=== PATIENT | male | born 1955 | race Caucasian/White ===

== ENCOUNTER 2022-02-19 09:28 | Inpatient (IN) ==
[2022-02-19] MEDS ORDERED: GLUCAGON 1 MG VIAL IM PRN (09:48)
[2022-02-19] MEDS ORDERED: DEXTROSE 10% 250 ML BAG IV PRN (12:18)
[2022-02-19] MEDS ORDERED: CLORAZEPATE 3.75 MG TABLET PO PRN (12:57)
[2022-02-19] MEDS ORDERED: NITROGLYCERIN SL 0.4 MG TABLET SL PRN (12:58)
[2022-02-19] MEDS ORDERED: MORPHINE 2 MG/1 ML SYRINGE IV PRN (12:58)
[2022-02-19 13:47] LABS: Basophils # 0.1 10*3/uL (0.0-0.2); Basophils % 0.9 % (0.0-0.8); Eosinophils # 0.2 10*3/uL (0.0-0.87); Eosinophils % 3.5 % (0.00-10.9); Hematocrit 46.5 VOL% (42.0-52.0); Hemoglobin 14.8 GM/DL (14.0-18.0); Immature Granulocytes % 0.3 %; Immature Granulocytes Absolute 0.02 #; Lymphocytes # 1.6 10*3/uL (1.4-4.0); Lymphocytes % 23.8 % (21.2-54.2); Mean Corpuscular HGB Conc 31.8 GM/DL (32-36); Mean Corpuscular Volume 89.8 FL (87-102); Mean Platelet Volume 9.7 FL (9.6-12.0); Monocytes # 0.6 10*3/uL (0.11-0.8); Monocytes % 8.9 % (1.7-12.7); Neutrophils % 62.6 % (38.7-73.9); Platelet Count 241 T/CUMM (130-400); Red Blood Count 5.18 MC/CUMM (3.8-5.5); Red Cell Distribution Width 14.4 % (9.3-17.3); White Blood Count 6.9 T/CUMM (4-12)
[2022-02-19 14:09] LABS: Albumin 3.5 G/DL (3.4-5.0); Bilirubin,Total 0.4 MG/DL (0.20-1.00); Calcium 8.9 MG/DL (8.5-10.1); Potassium 3.9 MMOL/L (3.5-5.1); Total Protein 7.2 G/DL (6.4-8.2)
[2022-02-19 16:05] LABS: Arterial Base Excess iSTAT -1 MMOL/L (-2.5-2.5); Arterial Bicarbonate iSTAT 23.1 MMOL/L (20-26); Arterial O2 Saturation iSTAT 97 % (95-100); Arterial PCO2 iSTAT 36 MM HG (35-48); Arterial PO2 iSTAT 90 MM HG (80-95); Arterial Total CO2 iSTAT 24 MMO/L (23-27); Arterial pH iSTAT 7.412 (7.35-7.45)
[2022-02-19] MEDS: CHLORHEXIDINE 4% SOLN 118 ML BOTTLE TOP SCH ×2 (16:30→20:29)
[2022-02-19] MEDS: ALPRAZolam 0.5 MG TABLET PO SCH (20:15)
[2022-02-19] MEDS: CHLORHEXIDINE 0.12% ORAL RINSE 60 ML BOTTLE SWISH/SPIT SCH (20:15)
[2022-02-19] MEDS ORDERED: METOPROLOL TARTRATE 50 MG TABLET PO ONE (20:24)
[2022-02-19] MEDS: NORTRIPTYLINE 25 MG CAPSULE PO SCH (20:54)
[2022-02-19] MEDS ORDERED: CALCIUM CARBONATE CHEW 500 MG TABLET PO ONE (22:36)
[2022-02-20] MEDS: CHLORHEXIDINE 4% SOLN 118 ML BOTTLE TOP SCH (04:03)
[2022-02-20] MEDS ORDERED: VANCOMYCIN 500 MG VIAL ONE (04:21)
[2022-02-20] MEDS ORDERED: PAPAVERINE 60 MG/2 ML VIAL ONE (04:21)
[2022-02-20] MEDS ORDERED: VANCOMYCIN 1,000 MG VIAL ONE (04:21)
[2022-02-20] MEDS ORDERED: CEFUROXIME INJ 1,500 MG in SODIUM CHLORIDE 0.9% 100 ML IV ONE (05:00)
[2022-02-20] MEDS: SODIUM CHLORIDE 0.9% 1,000 ML IV SCH ×2 (05:16→20:48)
[2022-02-20] MEDS ORDERED: FAMOTIDINE 20 MG TABLET PO ONE (05:30)
[2022-02-20] MEDS ORDERED: DIAZEPAM 5 MG TABLET PO ONE (05:30)
[2022-02-20] MEDS ORDERED: AMINOCAPROIC ACID 5,000 MG/20 ML VIAL ONE (05:50)
[2022-02-20] MEDS ORDERED: ETOMIDATE 40 MG/20 ML VIAL IV ONE (05:50)
[2022-02-20] MEDS ORDERED: LIDOCAINE 2% 5 ML VIAL ONE ×2 (05:50→12:44)
[2022-02-20] MEDS ORDERED: VECURONIUM 10 MG VIAL IV ONE (05:50)
[2022-02-20] MEDS ORDERED: CALCIUM CHLORIDE 1,000 MG/10 ML VIAL IV ONE (05:50)
[2022-02-20] MEDS ORDERED: MIDAZOLAM 10 MG/2 ML VIAL ONE ×4 (05:51→08:12)
[2022-02-20] MEDS ORDERED: SUFentanil 250 MCG/5 ML AMP ONE (05:51)
[2022-02-20] MEDS ORDERED: ePHEDrine 50 MG/ML VIAL ONE (06:06)
[2022-02-20] MEDS ORDERED: MINERAL OIL/PETROLATUM OPH OINT 3.5 GM TUBE ONE (06:14)
[2022-02-20] MEDS ORDERED: SODIUM CHLORIDE 0.9% 250 ML IV ONE (06:15)
[2022-02-20] MEDS ORDERED: HEPARIN/NACL 0.9% 2 UNITS/ML 1,000 UNIT/500 ML BAG IV ONE (06:15)
[2022-02-20] MEDS ORDERED: SODIUM CHLORIDE 0.9% 1,000 ML IV ONE (06:15)
[2022-02-20] MEDS ORDERED: PHENYLEPHRINE DRIP 20 MG/250 ML PREMIX IV ONE (06:15)
[2022-02-20] MEDS ORDERED: LACTATED RINGERS 1,000 ML IV ONE (06:15)
[2022-02-20] MEDS ORDERED: SEVOFLURANE 1 UNIT/15 MINUTE INH ONE (06:15)
[2022-02-20 08:16] LABS: ABG Base Excess -2.8 MMOL/L (-2.5-2.5); ABG HCO3 22.1 MMOL/L (20-26); ABG PH 7.344 (7.35-7.45); ABG TCO2 19.9 MMOL/L (23-27); Glucose Heart Surgery 160 MG/DL (74-106); Hematocrit Heart Surgery 42.8 PERCENT (42-52); Hemoglobin Heart Surgery 13.9 G/DL (14.0-18.0); Ionized Calcium Arterial 1.16 MMOL/L (1.21-1.46); PH Patient Temp Arterial 7.344; Patient Temperature 37 CELCIUS; Potassium Heart/CVR 3.8 MMOL/L (3.5-5.1); Sodium Heart/CVR 135 MMOL/L (135-145)
[2022-02-20] MEDS ORDERED: SODIUM BICARBONATE 50 MEQ/50 ML VIAL IV ONE ×2 (08:21→12:46)
[2022-02-20] MEDS ORDERED: CALCIUM CHLORIDE 1,000 MG/10 ML SYRINGE IV ONE (08:22)
[2022-02-20] MEDS ORDERED: PHENYLEPHRINE DRIP 40 MG/250 ML PREMIX IV ONE (08:22)
[2022-02-20] MEDS ORDERED: POTASSIUM CHLORIDE RIDER 20 MEQ/100 ML PREMIX IV ONE (08:22)
[2022-02-20] MEDS ORDERED: NITROPRUSSIDE 50 MG/2 ML VIAL ONE (08:22)
[2022-02-20 08:57] LABS: Bilirubin,Urine Negative (Negative); Blood, Urine Negative (Negative); Glucose,Urine (UA) Negative (Negative); Ketones,Urine Negative (Negative); Mucus,Urine Occasional /LPF (Occasional); Nitrite,Urine Negative (Negative); Protein,Urine Negative (Negative); RBC,Urine <1 /HPF (0-4); Squamous Epithelial Cell,Urine Occasional /HPF (0-10); Urine Appearance Clear (Clear); Urine Color Yellow (Yellow); Urine Specific Gravity 1.025 (1.001-1.035); Urine Urobilinogen 0.2 eU/dL (<2.0)
[2022-02-20 10:24] LABS: Hematocrit Heart Surgery 27.7 PERCENT (42-52); Hemoglobin Heart Surgery 8.9 G/DL (14.0-18.0); PH Patient Temp Venous 7.348; PO2 Patient Temp Venous 53.2 MM HG; Potassium Heart/CVR 5.1 MMOL/L (3.5-5.1); VBG Base Excess -2.8 MEQ/L (0-4); VBG HCO3 21.9 MEQ/L (24-28); VBG Oxygen Saturation 90.5 %; VBG PCO2 45.2 MMHG (41-51); VBG PH 7.32; VBG PO2 60.8 MMHG (17-40); VBG Total CO2 21.7 MMOL/L
[2022-02-20 11:00] LABS: Hematocrit Heart Surgery 32.6 PERCENT (42-52); Hemoglobin Heart Surgery 10.5 G/DL (14.0-18.0); PCO2 Patient Temp Venous 36.8 MM HG; PH Patient Temp Venous 7.36; PO2 Patient Temp Venous 40.4 MM HG; Potassium Heart/CVR 5.3 MMOL/L (3.5-5.1); VBG Base Excess -4.1 MEQ/L (0-4); VBG HCO3 20.7 MEQ/L (24-28); VBG PCO2 42.6 MMHG (41-51); VBG PH 7.318; VBG PO2 49.7 MMHG (17-40)
[2022-02-20] MEDS ORDERED: ALBUTEROL INHALER 18 GM INH ONE (11:10)
[2022-02-20 11:34] LABS: ABG Base Excess -5.3 MMOL/L (-2.5-2.5); ABG Oxygen Saturation 99.4 % (95-100); ABG PCO2 36.6 MM HG (35-48); ABG PH 7.342 (7.35-7.45); Glucose Heart Surgery 350 MG/DL (74-106); Hematocrit Heart Surgery 32.8 PERCENT (42-52); Hemoglobin Heart Surgery 10.6 G/DL (14.0-18.0); Ionized Calcium Arterial 1.23 MMOL/L (1.21-1.46); PCO2 Patient Temp Arterial 36.6 MMHG; PH Patient Temp Arterial 7.342; Patient Temperature 37 CELCIUS; Potassium Heart/CVR 4.5 MMOL/L (3.5-5.1); Sodium Heart/CVR 128 MMOL/L (135-145)
[2022-02-20] MEDS ORDERED: MORPHINE 10 MG/1 ML VIAL IV PRN (12:01)
[2022-02-20] MEDS ORDERED: VECURONIUM 10 MG VIAL IV PRN ×2 (12:01)
[2022-02-20] MEDS ORDERED: MAGNESIUM SULF RIDER 4 GM/100 ML PREMIX IV PRN (12:01)
[2022-02-20] MEDS ORDERED: SODIUM CHLORIDE 0.45% 1,000 ML IV SCH ×2 (12:01)
[2022-02-20] MEDS ORDERED: PHENYLEPHRINE DRIP 40 MG/250 ML PREMIX IV PRN (12:01)
[2022-02-20] MEDS ORDERED: ONDANSETRON 4 MG/2 ML VIAL IV PRN (12:01)
[2022-02-20] MEDS ORDERED: NITROPRUSSIDE 100 MG in DEXTROSE 5% 250 ML IV PRN (12:01)
[2022-02-20] MEDS ORDERED: CHLORHEXIDINE 4% SOLN 118 ML BOTTLE TOP PRN (12:01)
[2022-02-20] MEDS ORDERED: ACETAMINOPHEN 650 MG SUPP RECTAL PRN (12:01)
[2022-02-20] MEDS ORDERED: INSULIN REGULAR 100 UNIT/ML IV ONE (12:01)
[2022-02-20] MEDS ORDERED: MAGNESIUM SULF RIDER 2 GM/50 ML PREMIX IV PRN (12:01)
[2022-02-20] MEDS ORDERED: POTASSIUM CHLORIDE RIDER 10 MEQ/100 ML PREMIX IV PRN (12:01)
[2022-02-20] MEDS ORDERED: MIDAZOLAM 2 MG/2 ML VIAL IV PRN (12:01)
[2022-02-20] MEDS ORDERED: MIDAZOLAM 10 MG/2 ML VIAL IV PRN (12:01)
[2022-02-20] MEDS ORDERED: CALCIUM CHLORIDE 1,000 MG/10 ML SYRINGE IV PRN (12:01)
[2022-02-20] MEDS ORDERED: DEXTROSE 10% 250 ML BAG IV PRN ×2 (12:01)
[2022-02-20] MEDS: LACTATED RINGERS 1,000 ML IV PRN ×3 (12:10→13:52)
[2022-02-20 12:41] LABS: ABG Base Excess -3.5 MMOL/L (-2.5-2.5); ABG HCO3 21.6 MMOL/L (20-26); ABG Oxygen Saturation 99.4 % (95-100); ABG PCO2 42.9 MM HG (35-48); ABG PH 7.328 (7.35-7.45); Glucose Heart Surgery 339 MG/DL (74-106); Hematocrit Heart Surgery 37.3 PERCENT (42-52); Hemoglobin Heart Surgery 12.1 G/DL (14.0-18.0); Potassium Heart/CVR 3.4 MMOL/L (3.5-5.1)
[2022-02-20 12:43] LABS: Basophils % 0.3 % (0.0-0.8); Eosinophils # 0.1 10*3/uL (0.0-0.87); Eosinophils % 0.7 % (0.00-10.9); Hemoglobin 11.9 GM/DL (14.0-18.0); Immature Granulocytes % 0.9 %; Lymphocytes # 1.3 10*3/uL (1.4-4.0); Lymphocytes % 11.1 % (21.2-54.2); Mean Corpuscular HGB Conc 32.2 GM/DL (32-36); Mean Corpuscular Volume 90.2 FL (87-102); Mean Platelet Volume 9.9 FL (9.6-12.0); Monocytes # 0.5 10*3/uL (0.11-0.8); Monocytes % 4.7 % (1.7-12.7); Neutrophils % 82.3 % (38.7-73.9); Platelet Count 155 T/CUMM (130-400); Red Cell Distribution Width 14.4 % (9.3-17.3); White Blood Count 11.6 T/CUMM (4-12)
[2022-02-20] MEDS ORDERED: ALBUMIN 25% 25 GM/100 ML VIAL IV ONE (12:43)
[2022-02-20] MEDS ORDERED: MAGNESIUM SULFATE 5 GM/10 ML VIAL IV ONE (12:44)
[2022-02-20] MEDS ORDERED: DEXTROSE 5% KCL 20 MEQ 20 MEQ/1,000 ML BAG IV ONE (12:44)
[2022-02-20] MEDS ORDERED: methylPREDNISolone SOD SUC 1,000 MG/8 ML VIAL ONE (12:44)
[2022-02-20] MEDS ORDERED: HEPARIN 10,000 UNIT/10 ML VIAL ONE (12:45)
[2022-02-20] MEDS ORDERED: PROTAMINE SULFATE 250 MG/25 ML VIAL IV ONE (12:45)
[2022-02-20] MEDS ORDERED: MANNITOL 12.5 GM/50 ML VIAL IV ONE (12:45)
[2022-02-20] MEDS ORDERED: FUROSEMIDE 20 MG/2 ML VIAL ONE (12:46)
[2022-02-20] MEDS ORDERED: PROTAMINE SULFATE 50 MG/5 ML VIAL IV ONE (12:46)
[2022-02-20 12:52] LABS: INR 1.1; PT Patient Result 11.9 SECS (10.5-12.0); Partial Thromboplastin Time 25.8 SECS (23.8-32.1)
[2022-02-20] MEDS: POTASSIUM CHLORIDE RIDER 20 MEQ/100 ML PREMIX IV PRN ×7 (13:01→22:49)
[2022-02-20 13:06] LABS: CKMB % 3.66 %
[2022-02-20 13:10] LABS: High Sensitive Troponin I* 520.8 ng/L (0-78)
[2022-02-20 13:16] LABS: Albumin 3.1 G/DL (3.4-5.0); Bilirubin,Total 1.3 MG/DL (0.20-1.00); Calcium 8.9 MG/DL (8.5-10.1); Osmolality,Calculated 284.8 MOS/KG (273-304); Potassium 3.8 MMOL/L (3.5-5.1); Total Protein 5.3 G/DL (6.4-8.2)
[2022-02-20] MEDS: INSULIN REGULAR DRIP 100 ML IV SCH ×2 (13:24→22:46)
[2022-02-20] MEDS ORDERED: METOPROLOL TARTRATE 5 MG/5 ML VIAL IV ONE (14:02)
[2022-02-20] MEDS: ALBUMIN 5% 12.5 GM/250 ML VIAL IV PRN ×4 (14:41→23:51)
[2022-02-20 14:54] LABS: ABG HCO3 20.3 MMOL/L (20-26); ABG Oxygen Saturation 97.7 % (95-100); ABG PH 7.323 (7.35-7.45); ABG PO2 99.7 MM HG (80-95); ABG TCO2 18.6 MMOL/L (23-27); Glucose Heart Surgery 306 MG/DL (74-106); Hematocrit Heart Surgery 36.7 PERCENT (42-52); Hemoglobin Heart Surgery 11.9 G/DL (14.0-18.0); Potassium Heart/CVR 3.4 MMOL/L (3.5-5.1)
[2022-02-20] MEDS: DEXMEDETOMIDINE 200 MCG in SODIUM CHLORIDE 0.9% 48 ML IV PRN ×2 (16:18→20:42)
[2022-02-20 16:38] LABS: ABG HCO3 20.3 MMOL/L (20-26); ABG Oxygen Saturation 96.8 % (95-100); ABG PCO2 35.5 MM HG (35-48); ABG PH 7.356 (7.35-7.45); ABG PO2 86.8 MM HG (80-95); ABG TCO2 17.8 MMOL/L (23-27); Glucose Heart Surgery 285 MG/DL (74-106); Hematocrit Heart Surgery 36.5 PERCENT (42-52); Hemoglobin Heart Surgery 11.9 G/DL (14.0-18.0); Potassium Heart/CVR 4.1 MMOL/L (3.5-5.1)
[2022-02-20] MEDS: INSULIN REGULAR 100 UNIT/ML IV PRN ×2 (17:14→21:07)
[2022-02-20] MEDS ORDERED: AMIODARONE INJ 150 MG in DEXTROSE 5% 100 ML IV ONE (18:06)
[2022-02-20 18:13] LABS: ABG Base Excess -5.4 MMOL/L (-2.5-2.5); ABG Oxygen Saturation 97.4 % (95-100); ABG PCO2 35.6 MM HG (35-48); ABG PH 7.347 (7.35-7.45); ABG PO2 93.1 MM HG (80-95); ABG TCO2 17.4 MMOL/L (23-27); Glucose Heart Surgery 270 MG/DL (74-106); Hematocrit Heart Surgery 37.6 PERCENT (42-52); Hemoglobin Heart Surgery 12.2 G/DL (14.0-18.0); Potassium Heart/CVR 4.3 MMOL/L (3.5-5.1)
[2022-02-20] MEDS ORDERED: AMIODARONE INJ 450 MG in DEXTROSE 5% 241 ML IV SCH (18:30)
[2022-02-20] MEDS ORDERED: FUROSEMIDE 40 MG/4 ML VIAL IV ONE (19:27)
[2022-02-20] MEDS: CEFUROXIME INJ 1,500 MG in SODIUM CHLORIDE 0.9% 100 ML IV SCH (19:54)
[2022-02-20 20:17] LABS: ABG HCO3 19.5 MMOL/L (20-26); ABG Oxygen Saturation 97.4 % (95-100); ABG PH 7.359 (7.35-7.45); ABG TCO2 16.5 MMOL/L (23-27); Glucose Heart Surgery 270 MG/DL (74-106); Hematocrit Heart Surgery 37.6 PERCENT (42-52); Hemoglobin Heart Surgery 12.2 G/DL (14.0-18.0); Potassium Heart/CVR 4.1 MMOL/L (3.5-5.1)
[2022-02-20] MEDS: NORTRIPTYLINE 25 MG CAPSULE PO SCH (20:48)
[2022-02-20] MEDS: ALPRAZolam 0.5 MG TABLET PO SCH (20:48)
[2022-02-20] MEDS: CHLORHEXIDINE 0.12% ORAL RINSE 60 ML BOTTLE SWISH/SPIT SCH ×2 (20:48→21:37)
[2022-02-20 21:13] LABS: CKMB % 5.13 %
[2022-02-20 21:17] LABS: High Sensitive Troponin I* 41018.4 ng/L (0-78)
[2022-02-20 21:43] LABS: ABG Base Excess -5.2 MMOL/L (-2.5-2.5); ABG HCO3 20.2 MMOL/L (20-26); ABG Oxygen Saturation 99.2 % (95-100); ABG PH 7.356 (7.35-7.45); ABG TCO2 17.5 MMOL/L (23-27); Glucose Heart Surgery 247 MG/DL (74-106); Hematocrit Heart Surgery 36.4 PERCENT (42-52); Hemoglobin Heart Surgery 11.8 G/DL (14.0-18.0); Potassium Heart/CVR 4.3 MMOL/L (3.5-5.1)
[2022-02-20] MEDS: LACTATED RINGERS 250 ML IV PRN (21:45)
[2022-02-20] MEDS: HYDROmorphone 1 MG/1 ML SYRINGE IV PRN (22:32)
[2022-02-21] MEDS: LACTATED RINGERS 250 ML IV PRN (00:25)
[2022-02-21 00:26] LABS: ABG Base Excess -4.1 MMOL/L (-2.5-2.5); ABG HCO3 21.1 MMOL/L (20-26); ABG Oxygen Saturation 98.7 % (95-100); ABG PCO2 38.3 MM HG (35-48); ABG TCO2 18.9 MMOL/L (23-27); Glucose Heart Surgery 215 MG/DL (74-106); Hematocrit Heart Surgery 36.4 PERCENT (42-52); Hemoglobin Heart Surgery 11.8 G/DL (14.0-18.0); Potassium Heart/CVR 4.2 MMOL/L (3.5-5.1)
[2022-02-21] MEDS: AMIODARONE INJ 450 MG in DEXTROSE 5% 241 ML IV SCH ×2 (00:40→16:36)
[2022-02-21] MEDS: POTASSIUM CHLORIDE RIDER 20 MEQ/100 ML PREMIX IV PRN (01:14)
[2022-02-21 01:42] LABS: ABG Base Excess -3.7 MMOL/L (-2.5-2.5); ABG HCO3 21.3 MMOL/L (20-26); ABG Oxygen Saturation 97.4 % (95-100); ABG PCO2 35.8 MM HG (35-48); ABG PH 7.374 (7.35-7.45); ABG PO2 88.7 MM HG (80-95); ABG TCO2 18.5 MMOL/L (23-27); Glucose Heart Surgery 189 MG/DL (74-106); Hematocrit Heart Surgery 36.9 PERCENT (42-52); Potassium Heart/CVR 4.9 MMOL/L (3.5-5.1)
[2022-02-21 03:26] LABS: ABG Base Excess -3.3 MMOL/L (-2.5-2.5); ABG HCO3 21.7 MMOL/L (20-26); ABG Oxygen Saturation 97.4 % (95-100); ABG PH 7.388 (7.35-7.45); ABG PO2 87.6 MM HG (80-95); ABG TCO2 18.8 MMOL/L (23-27); Glucose Heart Surgery 186 MG/DL (74-106); Hemoglobin Heart Surgery 11.7 G/DL (14.0-18.0); Potassium Heart/CVR 4.4 MMOL/L (3.5-5.1)
[2022-02-21 03:29] LABS: Basophils % 0.1 % (0.0-0.8); Hematocrit 35.9 VOL% (42.0-52.0); Hemoglobin 11.7 GM/DL (14.0-18.0); Immature Granulocytes % 0.6 %; Immature Granulocytes Absolute 0.11 #; Lymphocytes # 0.6 10*3/uL (1.4-4.0); Lymphocytes % 3.6 % (21.2-54.2); Mean Corpuscular HGB Conc 32.6 GM/DL (32-36); Mean Corpuscular Volume 88.4 FL (87-102); Mean Platelet Volume 10.3 FL (9.6-12.0); Monocytes # 0.6 10*3/uL (0.11-0.8); Monocytes % 3.7 % (1.7-12.7); Platelet Count 165 T/CUMM (130-400); Red Blood Count 4.06 MC/CUMM (3.8-5.5); Red Cell Distribution Width 14.6 % (9.3-17.3); White Blood Count 17.5 T/CUMM (4-12)
[2022-02-21 03:47] LABS: Albumin 3.9 G/DL (3.4-5.0); Bilirubin,Direct 0.24 MG/DL (0.0-0.20); Bilirubin,Total 0.8 MG/DL (0.20-1.00); Calcium 8.5 MG/DL (8.5-10.1); Osmolality,Calculated 280.7 MOS/KG (273-304); Potassium 4.6 MMOL/L (3.5-5.1)
[2022-02-21 03:51] LABS: Lymphocytes 4 % (20-55); Platelet Estimate Adequate; Total Cells Counted 100
[2022-02-21] MEDS ORDERED: ACETAMINOPHEN 325 MG TABLET PO PRN ×2 (04:03→08:55)
[2022-02-21 04:11] LABS: CKMB % 6.13 %; High Sensitive Troponin I* 42323.7 ng/L (0-78)
[2022-02-21] MEDS: HYDROmorphone 1 MG/1 ML SYRINGE IV PRN ×2 (04:36→20:16)
[2022-02-21] MEDS ORDERED: HYDROmorphone 1 MG/1 ML SYRINGE IV ONE (06:05)
[2022-02-21] MEDS: INSULIN REGULAR 100 UNIT/ML IV PRN (06:17)
[2022-02-21] MEDS: CEFUROXIME INJ 1,500 MG in SODIUM CHLORIDE 0.9% 100 ML IV SCH ×2 (07:30→20:17)
[2022-02-21] MEDS: LORATADINE 10 MG TABLET PO SCH (08:45)
[2022-02-21] MEDS: ASPIRIN EC 81 MG TABLET PO SCH (08:45)
[2022-02-21] MEDS: CHLORHEXIDINE 0.12% ORAL RINSE 60 ML BOTTLE SWISH/SPIT SCH ×2 (08:47→20:35)
[2022-02-21] MEDS ORDERED: ZALEPLON 5 MG CAPSULE PO PRN (08:55)
[2022-02-21] MEDS ORDERED: GLUCAGON 1 MG VIAL IM PRN ×2 (08:55→12:48)
[2022-02-21] MEDS ORDERED: POTASSIUM CHLORIDE 20 MEQ TABLET PO PRN (08:55)
[2022-02-21] MEDS ORDERED: MAGNESIUM SULF RIDER 2 GM/50 ML PREMIX IV PRN (08:55)
[2022-02-21] MEDS ORDERED: DEXTROSE 10% 250 ML BAG IV PRN ×2 (08:55→12:52)
[2022-02-21] MEDS ORDERED: MAGNESIUM HYDROXIDE SUSP 30 ML UDCUP PO PRN (08:55)
[2022-02-21] MEDS ORDERED: ONDANSETRON 4 MG/2 ML VIAL IV PRN (08:55)
[2022-02-21] MEDS ORDERED: ALUMINUM/MAGNES/SIMETH MAX STR 30 ML UDCUP PO PRN (08:55)
[2022-02-21] MEDS ORDERED: MAGNESIUM SULF RIDER 4 GM/100 ML PREMIX IV PRN (08:55)
[2022-02-21] MEDS ORDERED: PANTOPRAZOLE 40 MG TABLET PO SCH (09:00)
[2022-02-21] MEDS: SODIUM CHLOR 0.45% KCL 20 MEQ 20 MEQ/1,000 ML BAG IV SCH (09:14)
[2022-02-21] MEDS: FERROUS SULFATE 325 MG TABLET PO SCH (09:16)
[2022-02-21 13:06] LABS: CKMB % 5.11 %; High Sensitive Troponin I* 27247.5 ng/L (0-78)
[2022-02-21] MEDS: INSULIN REGULAR 100 UNIT/ML SUBCUT SCH ×3 (13:24→20:22)
[2022-02-21] MEDS ORDERED: INSULIN REGULAR 100 UNIT/ML SUBCUT SCH (16:30)
[2022-02-21] MEDS: CALCIUM CARBONATE CHEW 500 MG TABLET PO PRN (17:41)
[2022-02-21] MEDS: NORTRIPTYLINE 25 MG CAPSULE PO SCH (20:21)
[2022-02-21] MEDS: FAMOTIDINE 20 MG TABLET PO SCH (20:21)
[2022-02-21] MEDS: METOPROLOL TARTRATE 25 MG TABLET PO SCH (20:21)
[2022-02-22 05:02] LABS: Basophils % 0.1 % (0.0-0.8); Eosinophils # 0.1 10*3/uL (0.0-0.87); Eosinophils % 0.4 % (0.00-10.9); Hematocrit 36.3 VOL% (42.0-52.0); Hemoglobin 11.4 GM/DL (14.0-18.0); Immature Granulocytes % 1.3 %; Immature Granulocytes Absolute 0.28 #; Lymphocytes # 2.1 10*3/uL (1.4-4.0); Lymphocytes % 9.8 % (21.2-54.2); Mean Corpuscular HGB Conc 31.4 GM/DL (32-36); Mean Corpuscular Volume 91.9 FL (87-102); Mean Platelet Volume 10.8 FL (9.6-12.0); Monocytes # 1.5 10*3/uL (0.11-0.8); Monocytes % 7.1 % (1.7-12.7); Neutrophils % 81.3 % (38.7-73.9); Platelet Count 176 T/CUMM (130-400); Red Blood Count 3.95 MC/CUMM (3.8-5.5); Red Cell Distribution Width 15.1 % (9.3-17.3); White Blood Count 21.2 T/CUMM (4-12)
[2022-02-22 05:22] LABS: Albumin 3.5 G/DL (3.4-5.0); Bilirubin,Direct 0.22 MG/DL (0.0-0.20); Bilirubin,Indirect 0.4 MG/DL (0.0-1.0); Bilirubin,Total 0.6 MG/DL (0.20-1.00); CKMB % 2.27 %; High Sensitive Troponin I* 15640.2 ng/L (0-78); Total Protein 6.2 G/DL (6.4-8.2)
[2022-02-22 05:25] LABS: Lymphocytes 12 % (20-55); Platelet Estimate Normal; Total Cells Counted 100
[2022-02-22 05:41] LABS: Albumin 3.4 G/DL (3.4-5.0); Bilirubin,Direct 0.18 MG/DL (0.0-0.20); Bilirubin,Total 0.6 MG/DL (0.20-1.00); Calcium 8.6 MG/DL (8.5-10.1); Osmolality,Calculated 275.2 MOS/KG (273-304); Potassium 4.5 MMOL/L (3.5-5.1); Total Protein 6.2 G/DL (6.4-8.2)
[2022-02-22] MEDS ORDERED: FUROSEMIDE 40 MG/4 ML VIAL IV ONE (06:00)
[2022-02-22] MEDS ORDERED: DOCUSATE SODIUM 100 MG CAPSULE PO SCH (09:00)
[2022-02-22] MEDS: FAMOTIDINE 20 MG TABLET PO SCH ×2 (09:11→21:34)
[2022-02-22] MEDS: NORTRIPTYLINE 25 MG CAPSULE PO SCH ×2 (09:11→21:35)
[2022-02-22] MEDS: METOPROLOL TARTRATE 25 MG TABLET PO SCH ×2 (09:11→21:34)
[2022-02-22] MEDS: ASPIRIN EC 81 MG TABLET PO SCH (09:11)
[2022-02-22] MEDS: FERROUS SULFATE 325 MG TABLET PO SCH (09:12)
[2022-02-22] MEDS: LORATADINE 10 MG TABLET PO SCH (09:12)
[2022-02-22] MEDS: INSULIN REGULAR 100 UNIT/ML SUBCUT SCH ×4 (09:12→21:36)
[2022-02-22] MEDS: CHLORHEXIDINE 0.12% ORAL RINSE 60 ML BOTTLE SWISH/SPIT SCH ×2 (09:12→21:36)
[2022-02-22] MEDS: AMIODARONE INJ 450 MG in DEXTROSE 5% 241 ML IV SCH ×2 (10:09→22:41)
[2022-02-22] MEDS: SODIUM CHLOR 0.45% KCL 20 MEQ 20 MEQ/1,000 ML BAG IV SCH (13:36)
[2022-02-23 05:05] LABS: Basophils % 0.3 % (0.0-0.8); Eosinophils % 0.3 % (0.00-10.9); Hematocrit 35.4 VOL% (42.0-52.0); Hemoglobin 11.2 GM/DL (14.0-18.0); Immature Granulocytes % 0.6 %; Immature Granulocytes Absolute 0.07 #; Lymphocytes # 1.8 10*3/uL (1.4-4.0); Mean Corpuscular HGB Conc 31.6 GM/DL (32-36); Mean Corpuscular Volume 91.7 FL (87-102); Mean Platelet Volume 10.8 FL (9.6-12.0); Monocytes # 0.9 10*3/uL (0.11-0.8); Monocytes % 7.6 % (1.7-12.7); Neutrophils % 76.2 % (38.7-73.9); Platelet Count 174 T/CUMM (130-400); Red Blood Count 3.86 MC/CUMM (3.8-5.5); Red Cell Distribution Width 14.8 % (9.3-17.3); White Blood Count 11.9 T/CUMM (4-12)
[2022-02-23 05:22] LABS: Albumin 3.1 G/DL (3.4-5.0); Bilirubin,Direct 0.18 MG/DL (0.0-0.20); Bilirubin,Total 0.7 MG/DL (0.20-1.00); Calcium 8.6 MG/DL (8.5-10.1); Potassium 3.5 MMOL/L (3.5-5.1); Total Protein 6.1 G/DL (6.4-8.2)
[2022-02-23 05:26] LABS: Alanine Aminotransferase 28 U/L (16-61); Albumin 3.1 G/DL (3.4-5.0); Alkaline Phosphatase 39 U/L (45-117); Aspartate Amino Transferase 35 U/L (0-37); Bilirubin,Indirect 0.5 MG/DL (0.0-1.0); Total Protein 6.2 G/DL (6.4-8.2)
[2022-02-23] MEDS ORDERED: HYDROmorphone 1 MG/1 ML SYRINGE IV PRN (07:36)
[2022-02-23] MEDS ORDERED: LACTULOSE 20 GM/30 ML UDCUP PO PRN (07:55)
[2022-02-23] MEDS: INSULIN REGULAR 100 UNIT/ML SUBCUT SCH ×4 (09:17→21:45)
[2022-02-23] MEDS: LORATADINE 10 MG TABLET PO SCH (09:48)
[2022-02-23] MEDS: DOCUSATE SODIUM 100 MG CAPSULE PO SCH ×2 (09:48→21:45)
[2022-02-23] MEDS: ASPIRIN EC 81 MG TABLET PO SCH (09:48)
[2022-02-23] MEDS: FERROUS SULFATE 325 MG TABLET PO SCH (09:48)
[2022-02-23] MEDS: FAMOTIDINE 20 MG TABLET PO SCH ×2 (09:48→21:45)
[2022-02-23] MEDS: METOPROLOL TARTRATE 25 MG TABLET PO SCH ×2 (09:48→21:44)
[2022-02-23] MEDS: NORTRIPTYLINE 25 MG CAPSULE PO SCH ×2 (09:48→21:45)
[2022-02-23] MEDS: CHLORHEXIDINE 0.12% ORAL RINSE 60 ML BOTTLE SWISH/SPIT SCH ×2 (09:49→21:43)
[2022-02-23] MEDS: POLYETHYLENE GLYCOL POWDER 17 GM PACK PO SCH (09:49)
[2022-02-23] MEDS: ROSUVASTATIN 20 MG TABLET PO SCH (21:43)
[2022-02-24 05:43] LABS: Basophils % 0.4 % (0.0-0.8); Eosinophils # 0.2 10*3/uL (0.0-0.87); Eosinophils % 1.9 % (0.00-10.9); Hemoglobin 11.4 GM/DL (14.0-18.0); Immature Granulocytes % 0.5 %; Immature Granulocytes Absolute 0.05 #; Lymphocytes # 1.9 10*3/uL (1.4-4.0); Mean Corpuscular HGB Conc 31.7 GM/DL (32-36); Mean Corpuscular Volume 90.2 FL (87-102); Mean Platelet Volume 10.6 FL (9.6-12.0); Monocytes # 0.8 10*3/uL (0.11-0.8); Monocytes % 7.8 % (1.7-12.7); Neutrophils % 70.4 % (38.7-73.9); Platelet Count 204 T/CUMM (130-400); Red Blood Count 3.99 MC/CUMM (3.8-5.5); Red Cell Distribution Width 14.6 % (9.3-17.3); White Blood Count 9.8 T/CUMM (4-12)
[2022-02-24 06:12] LABS: Albumin 3.1 G/DL (3.4-5.0); Bilirubin,Total 0.8 MG/DL (0.20-1.00); Calcium 8.9 MG/DL (8.5-10.1); Osmolality,Calculated 275.8 MOS/KG (273-304); Potassium 3.7 MMOL/L (3.5-5.1); Total Protein 6.7 G/DL (6.4-8.2)
[2022-02-24] MEDS: INSULIN REGULAR 100 UNIT/ML SUBCUT SCH ×4 (09:13→21:12)
[2022-02-24] MEDS: ASCORBIC ACID 500 MG TABLET PO SCH ×2 (09:59→21:09)
[2022-02-24] MEDS: METOPROLOL TARTRATE 25 MG TABLET PO SCH ×2 (09:59→21:09)
[2022-02-24] MEDS: POLYETHYLENE GLYCOL POWDER 17 GM PACK PO SCH (09:59)
[2022-02-24] MEDS: ASPIRIN EC 81 MG TABLET PO SCH (09:59)
[2022-02-24] MEDS: CHLORHEXIDINE 0.12% ORAL RINSE 60 ML BOTTLE SWISH/SPIT SCH ×2 (10:00→21:12)
[2022-02-24] MEDS: LORATADINE 10 MG TABLET PO SCH (10:00)
[2022-02-24] MEDS: DOCUSATE SODIUM 100 MG CAPSULE PO SCH ×2 (10:00→21:09)
[2022-02-24] MEDS: FERROUS SULFATE 325 MG TABLET PO SCH (10:00)
[2022-02-24] MEDS: NORTRIPTYLINE 25 MG CAPSULE PO SCH ×2 (10:00→21:08)
[2022-02-24] MEDS: FAMOTIDINE 20 MG TABLET PO SCH ×2 (10:00→21:09)
[2022-02-24] MEDS: APIXABAN 2.5 MG TABLET PO SCH ×2 (10:02→21:09)
[2022-02-24] MEDS: AMIODARONE 200 MG TABLET PO SCH ×2 (10:04→21:09)
[2022-02-24] MEDS: ROSUVASTATIN 20 MG TABLET PO SCH (21:09)
[2022-02-25] MEDS: CALCIUM CARBONATE CHEW 500 MG TABLET PO PRN (02:48)
[2022-02-25 05:51] LABS: Basophils % 0.3 % (0.0-0.8); Eosinophils # 0.2 10*3/uL (0.0-0.87); Eosinophils % 2.6 % (0.00-10.9); Hematocrit 34.6 VOL% (42.0-52.0); Immature Granulocytes % 0.4 %; Immature Granulocytes Absolute 0.03 #; Lymphocytes # 1.3 10*3/uL (1.4-4.0); Lymphocytes % 17.5 % (21.2-54.2); Mean Corpuscular HGB Conc 31.8 GM/DL (32-36); Mean Corpuscular Volume 90.3 FL (87-102); Mean Platelet Volume 10.1 FL (9.6-12.0); Monocytes # 0.7 10*3/uL (0.11-0.8); Monocytes % 9.3 % (1.7-12.7); Neutrophils % 69.9 % (38.7-73.9); Platelet Count 231 T/CUMM (130-400); Red Blood Count 3.83 MC/CUMM (3.8-5.5); Red Cell Distribution Width 14.5 % (9.3-17.3); White Blood Count 7.6 T/CUMM (4-12)
[2022-02-25 06:15] LABS: Alanine Aminotransferase 24 U/L (16-61); Alkaline Phosphatase 51 U/L (45-117); Aspartate Amino Transferase 22 U/L (0-37); Bilirubin,Indirect 0.7 MG/DL (0.0-1.0); Blood Urea Nitrogen 11 MG/DL (7-18); Calcium 8.9 MG/DL (8.5-10.1); Carbon Dioxide 22 MMOL/L (21-32); Chloride 105 MMOL/L (98-107); Glucose 140 MG/DL (74-106); Potassium 3.7 MMOL/L (3.5-5.1); Sodium 136 MMOL/L (136-145); Total Protein 6.7 G/DL (6.4-8.2)
[2022-02-25] MEDS: INSULIN REGULAR 100 UNIT/ML SUBCUT SCH ×2 (08:08→11:54)
[2022-02-25] MEDS: NORTRIPTYLINE 25 MG CAPSULE PO SCH (08:21)
[2022-02-25] MEDS: DOCUSATE SODIUM 100 MG CAPSULE PO SCH (08:21)
[2022-02-25] MEDS: FERROUS SULFATE 325 MG TABLET PO SCH (08:21)
[2022-02-25] MEDS: ASCORBIC ACID 500 MG TABLET PO SCH (08:21)
[2022-02-25] MEDS: FAMOTIDINE 20 MG TABLET PO SCH (08:22)
[2022-02-25] MEDS: ASPIRIN EC 81 MG TABLET PO SCH (08:22)
[2022-02-25] MEDS: LORATADINE 10 MG TABLET PO SCH (08:22)
[2022-02-25] MEDS: AMIODARONE 200 MG TABLET PO SCH (08:23)
[2022-02-25] MEDS: APIXABAN 2.5 MG TABLET PO SCH (08:23)
[2022-02-25] MEDS: METOPROLOL TARTRATE 25 MG TABLET PO SCH (08:23)
[2022-02-25] MEDS: POLYETHYLENE GLYCOL POWDER 17 GM PACK PO SCH (08:24)
[2022-02-25] MEDS: CHLORHEXIDINE 0.12% ORAL RINSE 60 ML BOTTLE SWISH/SPIT SCH (08:24)
[2022-02-25 11:06] VITALS: BP 148/83
== END 2022-02-25 13:38 | disposition home health service (06) | DRG 236 ==
LOC: N.TELES 12:16 → N.CVR 02-20 11:49 → N.ICU 02-21 08:43 → N.TELES 02-21 09:58